=== PATIENT | male | born 1985 | race Caucasian/White ===

== ENCOUNTER 2017-10-15 11:44 | Emergency (ER) | payer OTHER ==
[~2017-10-15] VITALS: Ht 182.9 cm; Wt 62.2 kg
[2017-10-15 11:48] VITALS: BP 141/70; PULSE 86; RESP 20; TEMP 99.3; O2SAT 100
--- NOTE | 2017-10-15 12:46 | PD ---
HPI Chief Complaint: Lump, Cyst, Hernia Time Seen by Provider: 12:27 Travel History International Travel<30 days: No Contact w/Intl Traveler<30days: No Traveled to known affect area: No History of Present Illness HPI 32-year-old male complains of recurrence of hernia on the abdominal wall. Patient status post abdominal hernia repair in January 2014. Patient states that he started having problem after surgery. Patient states that he is doing a lot of heavy lifting at work. Patient states that he noticed some soft tissue protrusion from the surgical site around the umbilicus after his surgery. Patient has been seen by the original surgeon and had MRI of the abdomen recently. Patient states that he lost contact with the general surgeon recently. Patient requesting evaluation of the hernia. Patient states that he has intermittent abdominal pain around the hernia area. Patient denies any nausea vomiting fever chills. Patient states that abdominal pain is worse with straining and heavy lifting. Patient denies any dysuria or frequency. Patient denies any fever chills PFSH Past Medical History Diminished Hearing: No Headaches: Yes Migraines: Yes Influenza Vaccination: No ?: Not Past Surgical History Abdominal Surgery: Yes (abd hernia repair 2013) Tonsillectomy: Yes Tympanostomy Tube: Yes Social History Alcohol Use: Yes (OCCAS) Tobacco Use: Yes (1 PPD) Substance Use: No Allergies-Medications (Allergen,Severity, Reaction): Coded Allergies: No Known Allergies (Unverified Adverse Reaction, Unknown, 10/15/17) Reported Meds & Prescriptions Reported Meds & Active Scripts Active No Active Prescriptions or Reported Medications Review of Systems General / Constitutional: No: Fever Eyes: No: Visual changes HENT: No: Headaches Cardiovascular: No: Chest Pain or Discomfort Respiratory: No: Shortness of Breath Gastrointestinal: Positive: Abdominal Pain Genitourinary: No: Dysuria Musculoskeletal: No: Pain Skin: No Rash Neurologic: No: Weakness Psychiatric: No: Depression Endocrine: No: Polydipsia Hematologic/Lymphatic: No: Easy Bruising Physical Exam Narrative GENERAL: Well-nourished, well-developed patient. SKIN: Focused skin assessment warm/dry. HEAD: Normocephalic. EYES: No scleral icterus. No injection or drainage. NECK: Supple, trachea midline. No JVD or lymphadenopathy. CARDIOVASCULAR: Regular rate and rhythm without murmurs, gallops, or rubs. RESPIRATORY: Breath sounds equal bilaterally. No accessory muscle use. GASTROINTESTINAL: Abdomen soft, nondistended. Patient has small area of abdominal wall defect on the abdominal wall around the umbilicus area. No soft tissue protrusion noted. No evidence of incarcerated bowel at this point. Active bowel sounds. No tenderness in palpation on abdominal wall area. No rebound tenderness. MUSCULOSKELETAL: No cyanosis, or edema. BACK: Nontender without obvious deformity. No CVA tenderness. Data Data Last Documented VS Vital Signs Date Time Temp Pulse Resp B/P (MAP) Pulse Ox O2 Delivery O2 Flow Rate FiO2 10/15/17 11:48 99.3 86 20 141/70 (93) 100 MDM Medical Decision Making Medical Screen Exam Complete: Yes Emergency Medical Condition: Yes Differential Diagnosis Differential diagnosis including abdominal wall defect from previous abdominal wall surgery, recurrence of hernia. Narrative Course 32-year-old male with abdominal wall defect and intermittent soft tissue protrusion from the previous abdominal wall hernia repair. No evidence of hernia today. Patient does not want any CT of the abdomen done today. Diagnosis Primary Impression: Abdominal wall hernia Patient Instructions: General Instructions Additional Instructions: Tylenol for pain. Follow-up local surgeon. Return if increased abdominal pain , recurrence of painful soft tissue mass around the hernia area, fever, vomiting. Med/Other Pt SpecificInfo: No Meds Exist/No RX given Scripts No Active Prescriptions or Reported Meds Disposition: 01 DISCHARGE HOME Condition: Stable Giuseppe Restrepo MD Oct 15, 2017 12:46
== END 2017-10-15 13:12 | disposition home or self-care (01) ==
LOC: PHED 11:44
DX: K43.9 Ventral hernia without obstruction or gangrene (principal)
CPT/HCPCS: 99282